=== PATIENT | male | born 1960 | race Caucasian/White ===

== ENCOUNTER 2016-08-28 00:57 | Inpatient (IN) ==
[2016-08-28 01:45] LABS: INR 1.3; PROTIME 13.9 Seconds (9.2-11.7)
[2016-08-28] MEDS ORDERED: LASIX IV ONE ×2 (01:51→04:05)
--- NOTE | 2016-08-28 01:55 | ED EKG INTERP ---
This chart was entered by Neno Pulliam Scribe, acting as scribe for Lex Cueto MD. EKG Interpretation - EKG Time of EKG reading by physician:: 00:56 EKG Read and Signed by:: Lex Cueto EKG Interpretation (*Must complete 3 of following elements*): Abnormal ( Possible L atrial enlargement; Rightward axis; Low voltage QRS; Incomplete RBBB ; ST & T wave abnormality, consider inferior ischemia) Rate: 78 Rhythm: Sinus rhythm with premature supraventricular complexes This chart was documented by the indicated scribe, (Neno Pulliam, Luci) and accurately reflects the services I performed and decisions made by , Lex Cueto MD, as attested by the provider's signature.
--- NOTE | 2016-08-28 03:18 | PROVIDER DOCUMENTATION ---
This chart was entered by Neno Pulliam Scribe, acting as scribe for Lex Cueto MD. HPI-Chest Pain - General Chief Complaint: Chest Pain Stated Complaint: cp Time Seen by Provider: 08/28/16 01:21 Source: patient Allergies/Adverse Reactions: Patient Allergies Allergy/AdvReac Type Severity Reaction Status Date / Time No Known Allergies Allergy Verified 08/28/16 01:16 Home Medications: Home Medication List Medication Instructions Recorded Confirmed Last Taken Type NK [No Home Medications] 08/28/16 08/28/16 Unknown History - History of Present Illness-CP Nature of Presenting Problem: Pt is a 56 yom who [facility] with CC of chest pain x2 days. Pt reports hx of CHF and reports that he started noticing bilateral periorbital swelling yesterday and has become significantly worse tonight. No further complaints. Location: reports: central Review of Systems - Adult - REVIEW OF SYSTEMS - ADULT Constitutional: denies: chills, fever, fatique, night sweats, weight gain, weight loss Eyes: reports: no symptoms reported Ears, Nose, Mouth & Throat: reports: no symptoms reported Cardiovascular: reports: chest pain, edema. denies: heart murmur, irregular heart rate, orthopnea, palpitations, poor circulation, PND, syncope Respiratory: reports: shortness of breath. denies: chronic cough, cough, dyspnea on exertion, excessive sputum production, hemoptysis, pleurisy, wheezing Gastrointestinal: reports: no symptoms reported Genitourinary: reports: no symptoms reported Musculoskeletal: reports: no symptoms reported Integumentary: reports: no symptoms reported Neurological: reports: no symptoms reported Psychiatric: reports: no symptoms reported Endocrine: reports: no symptoms reported Hematologic/Lymphatic: reports: no symptoms reported Allergic/Immunologic: reports: no symptoms reported All Other Systems: Reviewed and Negative Past History - Adult - PAST MEDICAL HISTORY-ADULT Review of Records: reports: Nursing Assessment Review, Medications Reviewed Cardiovascular: reports: CHF - IMMUNIZATION STATUS Childhood Immunizations: See Nurse Assessment Flu Vaccine: See Nurse Assessment Physical Exam-General - PHYSICAL EXAM-ADULT Initial Vital Signs Reviewed: Yes - CONSTITUTIONAL General Appearance: appears well, alert, moderate distress. negative: no apparent distress, mild distress - EYES Eyes: PERRL/EOMI, pink conjunctivae, other (bilateral periorbital swelling) - HEAD, EARS, NOSE, MOUTH & THROAT HENMT: normocephalic/atraumatic, moist mucous membranes, normal ENT inspection, TMs normal, pharynx normal. negative: pharyngeal erythema, tonsillar exudate, TM abnormal - NECK Neck: non-tender, full range of motion, supple, normal inspection. negative: C- spine tenderness, limited range of motion, lymphadenopathy - CARDIOVASCULAR Cardiovascular: normal peripheral pulses, regular rate, rhythm. negative: bradycardia, tachycardia, irregularly irregular - GASTROINTESTINAL (ABDOMEN) Abdominal Exam: normal bowel sounds, non tender, soft, no organomegaly, no pulsatile mass. negative: tenderness - MUSCULOSKELETAL Back Exam: normal inspection, no CVA tenderness, no vertebral tenderness, swelling (+4 saccral pitting edema). negative: muscle spasm Extremity: normal range of motion, non-tender, normal gait, normal inspection, no calf tenderness, normal capillary refill, pedal edema, swelling. negative: no pedal edema, deformity, erythema, inflammation, tenderness - SKIN Integumentary: normal color, normal turgor, warm/dry, swelling (bilateral periorbital). negative: diaphoresis, ecchymosis, erythema, laceration(s), tenderness, warm - NEUROLOGIC Neurologic: traffic administrator II-XII nml as tested, grossly normal, no motor/sensory deficits . negative: facial droop, focal weakness, motor weakness, sensory deficit - PSYCHIATRIC Psych/Mental Status: normal mood/affect, normal thought content, normal thought process, oriented x 3 Progress - PLAN OF CARE/RESULTS Progress/Plan/Lab Results: Orders Category Date Time Status Admit - [facility] Routine AdmDCTranf 08/28/16 09:42 Ordered Activity - Up with Assistance ORDERED Care 08/28/16 09:42 Active Cardiac Monitoring DIRECTED Care 08/28/16 01:20 Completed Daily Weights 0500 Care 08/28/16 09:42 Active Implement HF Clinical Pathway ORDERED Care 08/28/16 09:42 Active Intake and Output-Strict ORDERED Care 08/28/16 09:42 Active Nursing- Assist w/ IS as order ORDERED Care 08/28/16 09:42 Active Old records/chart to unit .From other facility Care 08/28/16 09:42 Active Oxygen Therapy- ED Nursing DIRECTED Care 08/28/16 01:20 Completed Saline Loc DIRECTED Care 08/28/16 09:42 Active Saline Loc NOW Care 08/28/16 01:20 Completed Turn, Cough and Deep Breathe Q4HR.AWAKE Care 08/28/16 09:42 Active Vital Signs Order Q 4-HR ASSESS Care 08/28/16 09:42 Active Social Service Consult Routine Cons 08/28/16 09:42 Active Heart Healthy Diet Diet 08/28/16 08:24 Completed ANGIOGRAM/PULMONARY ARTERIES [CT] Stat Exams 08/28/16 04:29 Completed CHEST-2 VIEWS [RAD] Stat Exams 08/28/16 01:20 Completed ABG [RESP] Routine Lab 08/28/16 04:14 Completed CBC WITH ELECTRONIC DIFF [HEME] Stat Lab 08/28/16 01:07 Completed CK PROFILE [SP CHEM] Q8H Lab 08/28/16 10:00 Completed CK PROFILE [SP CHEM] Stat Lab 08/28/16 01:07 Completed COMPREHENSIVE METABOLIC PANEL [CHEM] Stat Lab 08/28/16 01:07 Completed D-DIMER [CHEM] Stat Lab 08/28/16 01:07 Completed MAGNESIUM [CHEM] Stat Lab 08/28/16 01:07 Completed PRO B-NATRIURETIC PEPTIDE Stat Lab 08/28/16 01:07 Completed PROTEIN-CREATININE RATIO [URCHEM] Stat Lab 08/28/16 05:30 Completed PROTIME WITH INR [COAG] Stat Lab 08/28/16 01:07 Completed PTT [COAG] Stat Lab 08/28/16 01:07 Completed TROPONIN T Stat Lab 08/28/16 01:07 Completed UA NIMS W/REFLEX CULT [URINALYSIS] Stat Lab 08/28/16 05:20 Completed Acetaminophen [Tylenol] Med 08/28/16 09:42 Discontinued 650 mg PO Q6H PRN PRN Albuterol 2.5MG/Ipratrop 0.5MG [Duoneb (A & A)] Med 08/28/16 11:30 Discontinued 3 ml INH RTQ4H Aspirin Med 08/28/16 09:42 Discontinued 81 mg PO QAM Budesonide [Pulmicort] Med 08/28/16 19:30 Discontinued 0.5 mg INH RTBID CefTRIAXONE 1 GM/NS [Rocephin 1 gm/Ns] Med 08/28/16 09:42 Discontinued 1 gm in 50 ml IV Q24H Enoxaparin [Lovenox] Med 08/28/16 09:42 Discontinued 40 mg SUBQ Q24H Furosemide [Lasix] Med 08/28/16 01:51 Discontinued 40 mg IV NOW ONE Furosemide [Lasix] Med 08/28/16 04:05 Discontinued 40 mg IV NOW ONE Furosemide [Lasix] Med 08/28/16 21:00 Discontinued 40 mg PO BID Ondansetron [Zofran] Med 08/28/16 09:42 Discontinued 4 mg IV Q4H PRN PRN Pantoprazole [Protonix] Med 08/29/16 07:00 Discontinued 40 mg PO DAILY@0700 Aerosol Treatments Routine Oth 08/28/16 09:42 Active Oxygen Device Routine Ot 08/28/16 09:42 Active Pulse Oximetry Routine Ot 08/28/16 09:42 Active Telemetry [OM.EQ] Routine Ot 08/28/16 09:42 Active EKG [EKG] Stat Ther 08/28/16 00:59 Draft Transfer/Admit Order [TRANSFER] Routine Transfer 08/28/16 08:22 Completed Result Diagrams: 08/28/16 01:07 08/28/16 01:07 - XRAY 1 XRAY: Bilateral XRAY Study: Chest Impression: See EMR Report XRAY Interpretation: Cardiomegaly with CHF - ER Preliminary - CT/MRI 1 CT Study: Angiogram Impression: Abnormal, See EMR Report (no PE, Pul edema) - CONSULTS/PCP/HOSPITALIST Notification #1 *Consult/PCP/Hospitalist*: Dr Magaña Time Discussed: 06:19 Departure - Departure Time of Disposition Decision: 06:19 DIAGNOSIS: CHF (congestive heart failure), NYHA class III Qualifiers: Congestive heart failure type: combined Congestive heart failure chronicity: acute on chronic Qualified Code(s): I50.43 - Acute on chronic combined systolic (congestive) and diastolic (congestive) heart failure Disposition: ADMITTED INPATIENT 09 Certified Medical Emergency: Emergent Condition: Fair - Critical Care Note This patient required my direct & personal management of CC.: Yes Total Time (mins): 30 Critical Care Statement: This patient required my direct personal management to treat or rule out processes, the absence of which, could potentiallly result in sudden, clinically significant life or limb threatening deterioration. This chart was documented by the indicated scribe, (Neno Pulliam Scribe) and accurately reflects the services I performed and decisions made by me, Lex Cueto MD, as attested by the provider's signature.
[2016-08-28 03:25] LABS: MANUAL DIFF NEEDED? NO
[2016-08-28 03:39] LABS: BASO% 0.2 % (0.0-0.8); EOS# 0.13 X1000 (0.0-0.7); HEMATOCRIT 55.6 % (42.0-52.0); HEMOGLOBIN 16.4 g/dL (14.0-18.0); LYMPH% 14.1 % (20.5-51.1); MCH 26.5 PG (27-31); MCHC 29.5 g/dL (33-37); MCV 89.7 FL (81-99); MONO# 0.88 X1000 (0.11-0.59); MONO% 13.8 % (1.7-9.3); MPV 10.4 FL (7.4-10.4); NEUT% 69.9 % (42.2-75.2); PLT 126 X1000 (130-400)
[2016-08-28 03:41] LABS: AGAP 11; ALBUMIN 2.7 g/dL (3.5-5.0); ALKALINE PHOSPHATASE 69 U/L (32-122); BUN 17 mg/dL (8-22); CALCIUM 8.2 mg/dL (8.8-10.2); CHLORIDE 93 mmol/L (98-107); CK PROFILE 30 U/L (24-204); COSMO 283; GOT 25 U/L (10-34); GPT 19 U/L (10-44); POTASSIUM 3.8 mmol/L (3.5-5.1); SODIUM 142 mmol/L (136-145); TCO2 38 mmol/L (25-35); TOTAL BILIRUBIN 1.84 mg/dL (0.20-1.00); TOTAL PROTEIN 4.9 g/dL (6.3-8.3)
[2016-08-28 04:24] LABS: ALLEN TEST YES; BE 17.5 mmoll (-3.0-3.0); BLOOD TYPE ARTERIAL; DRAW SITE R RADIAL; METHB 1.3 % (0.0-1.5); PO2(98.6) 95 mmHg (60-100); SAMPLE BLOOD; SAO2 99.2 % (95.0-100.0); THB 16.9 g/dL (11.5-17.4)
[2016-08-28 04:25] LABS: MODALITY CANNULA; PCO2(98.6) 77 mmHg (35-45)
--- NOTE | 2016-08-28 05:29 | EKG Report ---
Test Performed on : 08/28/2016 00:56:51 AM Test Reason : cp Blood Pressure : / mmHG Vent. Rate : 078 BPM Atrial Rate : 078 BPM P-R Int : 154 ms QRS Dur : 092 ms QT Int : 404 ms P-R-T Axes : 068 100 000 degrees QTc Int : 460 ms Sinus rhythm. with premature supraventricular complexes. Possible Left atrial enlargement Rightward axis Low voltage QRS Incomplete right bundle branch block ST \T\ T wave abnormality, consider inferior ischemia Abnormal ECG No previous ECGs available Unconfirmed Result
[2016-08-28 05:34] LABS: URINE CULTURE NEEDED? NO; URINE MICRO REVIEW NEEDED? NO; URINE SOURCE CLEAN CATCH
[2016-08-28 06:32] LABS: BILIRUBIN URINE NEGATIVE (NEGATIVE); BLOOD URINE NEGATIVE (NEGATIVE); COLOR STRAW; GLUCOSE URINE NEGATIVE (NEGATIVE); LEUKOCYTES URINE NEGATIVE (NEGATIVE); NITRITE URINE NEGATIVE (NEGATIVE); PROTEIN URINE NEGATIVE (NEGATIVE); SP GRAVITY URINE 1.004; TURBIDITY URINE CLEAR (CLEAR); UROBILINOGEN URINE NORMAL (NORMAL)
[2016-08-28 06:34] LABS: UR EPITHELIAL CELLS <10 /HPF (<10); URINE BACTERIA NEGATIVE /HPF; URINE RBC <10 /HPF (<10); URINE WBC <10 /HPF (<10)
[2016-08-28 09:32] VITALS: BP 126/101
[2016-08-28] MEDS ORDERED: ROCEPHIN 1 GM/NS 1 GM/50 ML IVPB IV SCH (09:42)
[2016-08-28] MEDS ORDERED: ASPIRIN PO SCH (09:42)
[2016-08-28] MEDS ORDERED: TYLENOL PO PRN (09:42)
[2016-08-28] MEDS ORDERED: ZOFRAN IV PRN (09:42)
[2016-08-28] MEDS ORDERED: LOVENOX SUBQ SCH (09:42)
--- NOTE | 2016-08-28 09:43 | Diag Imaging Result Document ---
PROCEDURE NAME: ANGIOGRAM/PULMONARY ARTERIES - 08/28/2016 CT OF CHEST WITH INTRAVENOUS CONTRAST AND CLARITY DOSE REDUCTION SOFTWARE: COMMENT: There are no filling defects in the pulmonary arteries. There is apparent generalized anasarca. There is right hilar adenopathy. There are bilateral pleural effusions and ascites. There is no evidence of aortic aneurysm or dissection. There is generalized emphysematous change in both lungs. Some compressive atelectasis is present particularly in the right lower lobe. There are some degenerative changes in the thoracic spine. IMPRESSION: COPD, anasarca and effusions as described. No evidence of pulmonary emboli. Ascites.
--- NOTE | 2016-08-28 10:30 | Diag Imaging Result Document ---
PROCEDURE NAME: CHEST-2 VIEWS - 08/28/2016 CHEST X-RAY 2 VIEWS, 08/28/2016: COMPARISON: None. FINDINGS: There is cardiomegaly and pulmonary vascular congestion. Lungs are hyperexpanded compatible with advanced COPD. There is right hilar enlargement. There are trace pleural effusions. There are probably compression fractures in the lower thoracic spine. IMPRESSION: 1. Cardiomegaly and pulmonary vascular congestion suggesting early pulmonary edema. 2. Trace pleural effusions. 3. Nonspecific right hilar enlargement. On the followup CT there was indeed adenopathy here.
[2016-08-28] MEDS ORDERED: DUONEB (A & A) INH SCH (11:30)
--- NOTE | 2016-08-28 13:21 | HISTORY AND PHYSICAL ---
PRIMARY CARE PROVIDER: in [facility]. CHIEF COMPLAINT: Chest pain, eye swelling, and shortness of breath. HISTORY OF PRESENT ILLNESS: Mr. Alan Balderas is a 56-year-old male with a medical history of congestive heart failure and COPD. He states that he has had some shortness of breath over the last few weeks with intermittent 1-2 days of chest pain. He denies sweating or any radiation. He states he has shortness of breath, weakness, nausea, bilateral lower extremity swelling, subjective fever with chills. He states he does have a cough with green to white phlegm. States that the eye swelling has been worse over the last day. He has had chest pain for 2 days now. He has been presiding at [facility] x1 week for alcohol intoxication. Currently denies chest pain. He has received 2 doses of Lasix given his chest x-ray and pulmonary arteriogram shows pulmonary edema. He does have lower extremity edema with redness and swelling and an elevated D- dimer. The pulmonary arteriogram was negative for PE. ABG showed he had an elevated CO2 of 77 and he smokes 1 pack per day. Will admit to [facility] for chest pain, COPD exacerbation, and acute on chronic congestive heart failure. The patient was recently at [facility] for same complaints and was released prior to being arrested. PAST MEDICAL HISTORY: 1. Congestive heart failure. Will follow up with echocardiogram. 2. COPD. PAST SURGICAL HISTORY: States he has had some sort of neck surgery but was unable to tell me what kind. There are no surgical scars. SOCIAL HISTORY: One pack per day smoker. He denies alcohol, although was arrested for alcohol intoxication. Denies illicit drug use. Has currently been at [facility] for 1 week. FAMILY HISTORY: Negative. REVIEW OF SYSTEMS: Fourteen point review of systems were complete and all were negative except for those mentioned in the above HPI. ALLERGIES: No known drug allergies. HOME MEDICATIONS: None. LABORATORY DATA: White blood cells 6,000, hemoglobin 16, hematocrit 55, platelet count 126,000. INR 1.3, PTT 30. D-dimer 2.03. ABGs, pH 7.4, pCO2 77, PO2 95, bicarb 38, base excess 17, O2 saturation 92%. Carboxyhemoglobin is 5.9, lactate 0.7; this is on 4 L nasal cannula. Sodium 142, potassium 3.8, BUN 17, creatinine is 1.0, glucose 77, calcium 8.2, magnesium 1.7, bilirubin is 1.84, AST 25, ALT 19. CK 30. Troponin less than 0.01. ProBNP 3,636. Albumin is 2.7. Urinalysis negative, negative for protein, negative for white blood cells, and negative for bacteria. IMAGING: EKG, 78, sinus rhythm with PVCs and complete right bundle branch block. No ST elevations noted. Chest x-ray with pulmonary edema. Pulmonary arteriogram with pulmonary edema. Negative for PE. PHYSICAL EXAMINATION: VITAL SIGNS: Temperature is 98.4 degrees, heart rate 77, respiratory rate 12, blood pressure 131/91, O2 saturation 99% on 4 L nasal cannula. GENERAL: Mr. Balderas is a 56-year-old, ill-appearing, male. He is in no acute distress. He is able to answer questions appropriately. HEENT: Atraumatic, normocephalic. Pupils equal, round, reactive to light. Extraocular movements intact. Mucous membranes are dry. There is some periorbital edema just under the eyes. NECK: Positive JVD about 3 at 45 degree angle. No carotid bruits. CARDIOVASCULAR: S1, S2. Regular rate and rhythm. No rubs, gallops, murmurs. PULMONARY: Mild expiratory wheezes throughout. No accessory muscle use or work of breathing noted. GI: Soft, nontender, nondistended. Positive bowel sounds x4. EXTREMITIES: Bilateral lower extremity edema with some redness and swelling. He has +1 dorsalis pedal pulses and +2 radial pulses. NEUROLOGIC: A O x4. Moves all extremities equally. SKIN: Warm, dry, intact except for lower extremity redness. ASSESSMENT AND PLAN: 1. Acute on chronic systolic versus diastolic congestive heart failure. He will receive 40 of Lasix p.o. twice daily. Echocardiogram will be performed. We will transfer to [facility]. 2. Complaints of chest pain. Will do serial cardiac enzymes. 3. Elevated D-dimer, lower extremity edema with redness. Will rule out DVT with lower extremity ultrasound. 4. Chronic obstructive pulmonary disease exacerbation. Although he is afebrile and white blood cell count is normal, he did complain of some subjective fevers and chills and green phlegm, so we will do Rocephin for now. Will do albuterol Atrovent nebs with budesonide nebs. Recheck an ABG tonight and in the morning. Chest x-ray in the morning. 5. Tobacco abuse. Cessation discussed. Will hold on nicotine patch for now given elevated D- dimer. 6. Likely history of alcohol abuse, although patient does deny this. 7. Deep venous thrombosis prophylaxis. Lovenox 40 subcutaneous daily. 8. Gastrointestinal prophylaxis. Protonix p.o. 9. Elevated bilirubin. We will do an abdominal ultrasound to follow up on the liver. Dictated by RON Tierney for Jaron Durant MD cc: RON Tierney MD
[2016-08-28 17:04] LABS: UR CREAT RANDOM 4.5 mg/dL (14-26); UR PROT RANDOM < 4.0 mg/dL
[2016-08-28] MEDS ORDERED: PULMICORT INH SCH (19:30)
--- NOTE | 2016-08-28 20:00 | DISCHARGE SUMMARY ---
ADMISSION DATE: 08/28/2016 DISCHARGE DATE: 08/28/2016 HOSPITAL COURSE: Mr. Alan Balderas is a 56-year-old male who presented from the [facility] with complaints of chest pain, eye swelling, shortness of breath. Mr. Balderas left AMA today once he was released from the [facility]. The [facility] had released him upon finding out that he was being admitted to the hospital. Again, Mr. Alan Balderas left against medical advice secondary to being released from [facility]. Dictated by RON Tierney for Jaron Durant MD cc: RON Tierney MD
[2016-08-28] MEDS ORDERED: LASIX PO SCH (21:00)
[2016-08-29] MEDS ORDERED: PROTONIX PO SCH (07:00)
== END 2016-08-28 10:56 | disposition left against medical advice (07) ==
LOC: ED 00:57 → 3N 08:48
PROVIDERS: ATTEND Internal Medicine